=== PATIENT | male | born 1995 | race Hispanic/Latino ===

== ENCOUNTER 2024-02-19 16:11 | Emergency (ER) | payer OTHER ==
[~2024-02-19] VITALS: Ht 172.7 cm; Wt 72.7 kg
[2024-02-19] MEDS: dexAMETHasone 20MG/5ML VIAL IV ONE (20:25)
[2024-02-19] MEDS: diphenhydrAMINE 50MG/ML VIAL IV ONE (20:25)
[2024-02-19] MEDS: METOCLOPRAMIDE INJ 10MG/2ML VIAL IV ONE (20:25)
[2024-02-19 21:33] VITALS: BP 124/61; TEMP 97.3; O2SAT 98
== END 2024-02-19 21:34 | disposition home or self-care (01) ==
LOC: M ED 16:11
DX: R51.9 Headache, unspecified (principal); F17.210 Nicotine dependence, cigarettes, uncomplicated
CPT/HCPCS: 96374; 99284; J1100; J1200; J2765